=== PATIENT | male | born 1950 | race Caucasian/White ===

== ENCOUNTER 2017-03-27 11:19 | Emergency (ER) | payer MEDICARE ==
[~2017-03-27] VITALS: Ht 180.3 cm; Wt 97.8 kg
[2017-03-27 11:21] VITALS: BP 155/93
[2017-03-27] MEDS ORDERED: RABIES IMMUNE GLOBULIN/PF 150 UNITS/ML, 2ML IM ONE (12:00)
[2017-03-27] MEDS ORDERED: RABIES VACCINE /PF 2.5 UNITS IM-VACC ONE (12:00)
[2017-03-27] MEDS: ALBUTEROL/IPRATROPIUM 2.5MG/0.5MG, 3 ML NPPB SCH (12:03)
[2017-03-27] MEDS ORDERED: AZITHROMYCIN 500 MG TABLET ONE (12:59)
[2017-03-27] MEDS ORDERED: CEFTRIAXONE 1,000 MG ONE (13:00)
[2017-03-27] MEDS ORDERED: CEFTRIAXONE 1,000 MG IM ONE (13:00)
[2017-03-27] MEDS ORDERED: AZITHROMYCIN 500 MG TABLET PO ONE (13:00)
== END 2017-03-27 13:29 | disposition home or self-care (01) ==
LOC: ED 13:23
DX: J15.9 Unspecified bacterial pneumonia (principal); I10 Essential (primary) hypertension
CPT/HCPCS: 71020; 93005; 94640; 96372; 99284; J0696; J7512; J7620

== ENCOUNTER 2017-03-28 10:54 | Emergency (ER) | payer MEDICARE ==
[~2017-03-28] VITALS: Ht 180.3 cm; Wt 98.6 kg
[2017-03-28 10:57] VITALS: BP 145/90
== END 2017-03-28 11:25 | disposition home or self-care (01) ==
LOC: ED 11:19
DX: I10 Essential (primary) hypertension (principal); J18.9 Pneumonia, unspecified organism
CPT/HCPCS: 99281